=== PATIENT | female | born 1955 | race Caucasian/White ===

== ENCOUNTER → 2019-06-09 | Outpatient (CLI) | payer BC ==
[~2019-06-09] MED LIST: ABILIFY 2 MG2 M1 PO; ALDACTONE25 MG PO; AMITRIPTYLINE H25 M2 PO; ASPIR 8181 MG PO; AVONEX30 MCG/0.5 IM; FISH OIL 1,001000 M2 PO; GLUCOSAMINE HC500 MG PO; IBUPROFEN 600600 M1 PO; LEVOTHYROXINE0.05 MG PO; LIORESAL 10 MG10 MG PO; LIPITOR10 MG PO; METHADONE HCL 110 M1 PO; MULTIVITAMIN; NEURONTIN600 MG PO; NORCO 5-325 TA1 EACH PO; PREDNISONE 20 M20 M1 PO; TOPROL XL50 MG; VITAMIN D31000 UNI2 PO; WELLBUTRIN SR150 MG PO
== END ==
LOC: NUC 09:41 → BC 09:41
DX: Z12.31 Encounter for screening mammogram for malignant neoplasm of breast (principal); Z13.820 Encounter for screening for osteoporosis; R93.7 Abnormal findings on diagnostic imaging of other parts of musculoskeletal system; Z78.0 Asymptomatic menopausal state

== ENCOUNTER 2019-12-08 10:36 | Emergency (ER) | payer OTHER ==
[~2019-12-08] VITALS: Ht 152.4 cm; Wt 51.7 kg
[2019-12-08] MEDS ORDERED: TRIMETHOPRIM /P10 M1 OPHTHALMIC (11:38)
[2019-12-08 11:47] VITALS: BP 143/80
== END 2019-12-08 11:48 | disposition home or self-care (01) ==
LOC: ER 10:36
DX: H10.9 Unspecified conjunctivitis (principal); R50.9 Fever, unspecified; R53.83 Other fatigue; M79.10 Myalgia, unspecified site; I10 Essential (primary) hypertension; E03.9 Hypothyroidism, unspecified; E78.00 Pure hypercholesterolemia, unspecified; Z79.899 Other long term (current) drug therapy; Z79.82 Long term (current) use of aspirin

== ENCOUNTER → 2020-06-01 | Outpatient (CLI) | payer OTHER ==
[~2020-06-01] MED LIST changes: +TRIMETHOPRIM /P10 M1 OPHTHALMIC
== END ==
LOC: CAT 09:10
PROVIDERS: ATTEND Nurse Practitioner
DX: K57.30 Diverticulosis of large intestine without perforation or abscess without bleeding (principal); N28.89 Other specified disorders of kidney and ureter; I70.0 Atherosclerosis of aorta; R19.5 Other fecal abnormalities; N32.89 Other specified disorders of bladder; M41.86 Other forms of scoliosis, lumbar region; M25.78 Osteophyte, vertebrae

== ENCOUNTER → 2020-12-06 | Outpatient (CLI) | payer OTHER | LOC: SJCVC 11:59 | PROVIDERS: ATTEND Internal Medicine Cardiovascular Disease | DX: R94.31 Abnormal electrocardiogram [ECG] [EKG] (principal); E78.00 Pure hypercholesterolemia, unspecified; I10 Essential (primary) hypertension; E03.9 Hypothyroidism, unspecified; G62.9 Polyneuropathy, unspecified; Z86.16 Personal history of COVID-19; Z86.010 Personal history of colon polyps; Z79.899 Other long term (current) drug therapy; Z79.82 Long term (current) use of aspirin; Z72.89 Other problems related to lifestyle; Z88.1 Allergy status to other antibiotic agents; Z88.8 Allergy status to other drugs, medicaments and biological substances ==

== ENCOUNTER → 2020-12-28 | Outpatient (CLI) | payer OTHER | LOC: SJCVCIMAG 09:01 | PROVIDERS: ATTEND Internal Medicine Cardiovascular Disease | DX: I45.10 Unspecified right bundle-branch block (principal); I73.9 Peripheral vascular disease, unspecified; E78.5 Hyperlipidemia, unspecified; I10 Essential (primary) hypertension ==

== ENCOUNTER → 2021-02-01 | Outpatient (CLI) | payer OTHER | LOC: LAB 11:56 → NUC 12:08 | PROVIDERS: ATTEND Nurse Practitioner | DX: M85.88 Other specified disorders of bone density and structure, other site (principal); Z78.0 Asymptomatic menopausal state; R29.890 Loss of height ==